=== PATIENT | male | born 1975 ===

== ENCOUNTER 2020-12-24 11:03 | Day surgery (SDC) | payer OTHER ==
[2020-12-24] MEDS ORDERED: LEVOFLOXACIN500 MG PO (16:42)
[2020-12-24] MEDS ORDERED: TAMS0.4C PO (16:43)
== END 2020-12-24 22:15 | disposition home or self-care (01) ==
LOC: CIR.AMB 11:03
PROVIDERS: ATTEND Surgery
DX: N21.1 Calculus in urethra (principal); Z20.822 Contact with and (suspected) exposure to COVID-19